=== PATIENT | male | born 1970 | race American Indian/Alaskan Native ===

== ENCOUNTER 2018-03-21 20:53 | Emergency (ER) | payer SELFPAY ==
[2018-03-21 21:15] VITALS: BP 146/80
[2018-03-22] MEDS ORDERED: MOTRIN ONE (01:13)
[2018-03-22] MEDS ORDERED: CIPRODEX AD ONE (02:47)
[2018-03-22] MEDS ORDERED: MOTRIN PO ONE (03:08)
--- NOTE | 2018-03-22 03:08 | Emergency Department Report ---
ED ENT HPI - General Chief complaint: Earache Stated complaint: EARACHE Time Seen by Provider: 03/22/18 02:47 Source: patient Mode of arrival: Ambulatory Limitations: No Limitations - History of Present Illness Initial comments: 48-year-old -[place] male comes to the emergency room complaining of right ear pain 1 week. Patient reports that he took pohu-izs-lgsnbyn amoxicillin for 5 days. He admits to decreased hearing in midst of drainage from the ear denies any fever no chills no nausea no vomiting. Denies any recent swimming but does report takes a shower often. He has taken over-the- counter Motrin for pain management. He has no past medical history. MD complaint: ear pain -: week(s) (1) Location: R ear Quality: aching Consistency: constant Improves with: none Worsens with: none - Related Data Allergies Allergy/AdvReac Type Severity Reaction Status Date / Time No Known Allergies Allergy Unverified 03/21/18 21:15 ED Dental HPI - General Chief complaint: Earache Stated complaint: EARACHE Time Seen by Provider: 03/22/18 02:47 Source: patient Mode of arrival: Ambulatory Limitations: No Limitations - Related Data Allergies Allergy/AdvReac Type Severity Reaction Status Date / Time No Known Allergies Allergy Unverified 03/21/18 21:15 ED Review of Systems ROS: Stated complaint: EARACHE Other details as noted in HPI Comment: All other systems reviewed and negative Constitutional: no symptoms reported ENT: ear pain ED Past Medical Hx - Past Medical History Previous Medical History?: No - Surgical History Past Surgical History?: No - Social History Smoking Status: Never Smoker Substance Use Type: Alcohol ED Physical Exam - General Limitations: No Limitations General appearance: alert, in no apparent distress - Head Head exam: Present: atraumatic, normocephalic - Eye Eye exam: Present: EOMI - Expanded ENT Exam Expanded TM/Canal exam: Canal Discharge: Right TM, Canal Tenderness: Right TM Mouth exam: Present: normal external inspection - Neck Neck exam: Present: normal inspection, full ROM. Absent: lymphadenopathy ED Course Vital Signs 03/21/18 03/22/18 21:13 04:05 Temperature 98.1 F Pulse Rate 72 67 Respiratory 16 17 Rate Blood Pressure 146/80 O2 Sat by Pulse 97 97 Oximetry - Procedure Description Procedures done: Ear wick placed in right ear. Used neomycin polymycin and Hydrocortisone otic drops ED Medical Decision Making - Medical Decision Making Patient has been evaluated by this provider fast track. Ibuprofen 800 mg ordered for pain management. Neomycin/polymyxin/HC optic solution with ear wax has been ordered and placed in the right ear. Discussed with patient to put 4 drops in the ear 4 times a day for the next 7 days. Patient and then removed the wick. If symptoms persist or gets worse patient is to follow-up with his primary care provider. Critical care attestation.: If time is entered above; I have spent that time in minutes in the direct care of this critically ill patient, excluding procedure time. ED Disposition Clinical Impression: Otitis externa Qualifiers: Otitis externa type: swimmer's ear Chronicity: acute Laterality: right Qualified Code(s): H60.331 - Swimmer's ear, right ear Disposition: DC- TO HOME OR SELFCARE Is pt being admited?: No Does the pt Need Aspirin: No Condition: Stable Instructions: Otitis Externa (ED) Additional Instructions: Please use to neomycin eardrops 4 times a day for the next 7 days. He can take yauq-aca-[id number] pain medication. If symptoms persist or gets worse please follow up with her primary care provider. Referrals: TYRELL MOSES MD [Primary Care Provider] - 3-5 Days [facility] [Provider Group] - 3-5 Days Forms: Work/School Release Form(ED)
[2018-03-22] MEDS ORDERED: CORTISPORIN AU SCH (04:00)
== END 2018-03-22 04:05 | disposition home or self-care (01) ==
LOC: ED 20:53
DX: H60.331 Swimmer's ear, right ear (principal)
CPT/HCPCS: 99282